=== PATIENT | female | born 1960 ===

== ENCOUNTER 2017-01-27 12:42 | Inpatient (IN) | payer MEDICAID, OTHER ==
[2017-01-27 12:52] VITALS: BMI 30.2
--- NOTE | 2017-01-27 13:30 | CT ---
PROCEDURE: CT HEAD WITHOUT CONTRAST. HISTORY: STROKE ALERT COMPARISON: None available. TECHNIQUE: Axial computed tomography images were obtained through the head/brain without intravenous contrast. Radiation dose: Total exam DLP = 820.35 mGy-cm. This CT exam was performed using one or more of the following dose reduction techniques: Automated exposure control, adjustment of the mA and/or kV according to patient size, and/or use of iterative reconstruction technique. FINDINGS: HEMORRHAGE: No acute parenchymal, subarachnoid nor extra-axial hemorrhage. . BRAIN: There is a somewhat curvilinear and irregular radiopaque density in the right parietal periventricular white matter associated with surrounding nonspecific gliosis. These findings most likely represent sequela of prior endovascular treatment for AVM however clinical correlation with history recommended. Clinical correlation with history is recommended. Note that the possibility of an underlying small acute infarct cannot be excluded based on this exam. Minor vascular calcifications. VENTRICLES: There is slight ex vacuo dilatation of the posterior aspect right lateral ventricle adjacent and abutting the aforementioned presumptive embolization coils and gliotic change. CALVARIUM: Calvarium is intact. PARANASAL SINUSES: Unremarkable as visualized. No significant inflammatory changes. MASTOID AIR CELLS: Unremarkable as visualized. No inflammatory changes. OTHER FINDINGS: None. IMPRESSION: No acute intracranial hemorrhage. Presumed embolization coils right parietal region with surrounding presumed gliosis. These findings most likely represent sequela of prior endovascular treatment for AVM however clinical correlation with history recommended. Minimal chronic periventricular white matter ischemic changes. Note possibility of a small acute infarct cannot be excluded. Clinical correlation recommended. These findings discussed with Dr. Rand at approximately 1:25 p.m. with written down and read back verification.
--- NOTE | 2017-01-27 13:54 | RAD ---
HISTORY: ADM COMPARISON: None available. TECHNIQUE: Chest, one view. FINDINGS: LUNGS: No focal consolidation. Please note that chest x-ray has limited sensitivity for the detection of pulmonary masses. PLEURA: No significant pleural effusion identified. No definite pneumothorax . CARDIOVASCULAR: Heart size appears within normal limits. OSSEOUS STRUCTURES: Degenerative changes of the spine. Acromioclavicular arthropathy. VISUALIZED UPPER ABDOMEN: Unremarkable. OTHER FINDINGS: None. IMPRESSION: No focal consolidation, significant pleural effusion, or definite pneumothorax identified.
[2017-01-27 14:13] LABS: BASO % 0.4 % (0.0-2.0); EOS # 0.1 K/uL (0.0-0.7); EOS % 1.6 % (0.0-4.0); HEMATOCRIT 35.7 % (34.0-47.0); LYMPH # 1.9 K/uL (1.0-4.3); LYMPH % 34.8 % (20.0-40.0); MEAN CELL VOLUME 86.7 fL (81.0-99.0); MEAN CORPUSCULAR HEMOGLOBIN 28.9 pg (27.0-31.0); MEAN CORPUSCULAR HGB CONC 33.3 g/dL (33.0-37.0); MONO # 0.3 K/uL (0.0-0.8); MONO % 6.2 % (0.0-10.0); RED CELL DISTRIBUTION WIDTH 13.7 % (11.5-14.5); WHITE BLOOD COUNT 5.6 K/uL (4.8-10.8)
[2017-01-27 14:21] LABS: INR 1.1; RBC URINE < 1 /hpf (0-3); URINE BILIRUBIN NEGATIVE (NEGATIVE); URINE BLOOD NEGATIVE (NEGATIVE); URINE COLOR Yellow (YELLOW); URINE GLUCOSE (UA) NORMAL (Normal); URINE KETONE NEGATIVE (NEGATIVE); URINE LEUKOCYTE ESTERASE NEG Leu/uL (Negative); URINE PROTEIN NEGATIVE (NEGATIVE); URINE UROBILINOGEN NORMAL mg/dL (0.2-1.0); WBC URINE 2 /hpf (0-5)
[2017-01-27 14:24] LABS: CHLORIDE 102 mmol/L (98-107); SODIUM 140 mmol/L (132-148)
[2017-01-27 14:25] LABS: POTASSIUM 3.7 mmol/L (3.6-5.2)
[2017-01-27 14:26] LABS: CHOLESTEROL 170 mg/dL (0-199)
[2017-01-27 14:27] LABS: ALB/GLOB RATIO 1.4 (1.0-2.1); ALKALINE PHOSPHATASE 78 U/L (38-126); AST/SGOT 26 U/L (14-36); BILIRUBIN,TOTAL 0.5 mg/dL (0.2-1.3); BLOOD UREA NITROGEN 16 mg/dL (7-17); CARBON DIOXIDE 28 mmol/L (22-30); GFR AFRICAN-AMERICAN > 60; GLUCOSE,RANDOM 115 mg/dL (65-105); TOTAL PROTEIN 6.8 g/dL (6.3-8.3)
[2017-01-27 14:28] LABS: ALT/SGPT 20 U/L (9-52); CALCIUM 8.8 mg/dl (8.6-10.4)
--- NOTE | 2017-01-27 14:44 | C.PDOC ---
History Of Present Illness 56 y/o female presents to the emergency department with complains of right face and left body paresthesia x1 day. 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 Denies chest pain, SOB, headache , nausea, vomiting or any other complaints. Time Seen by Provider: 01/27/17 13:15 Chief Complaint (Nursing): Weakness/Neurological Deficit History Per: Patient History/Exam Limitations: no limitations Onset/Duration Of Symptoms: Hrs Current Symptoms Are (Timing): Still Present Fall Associated With With Symptoms: No Severity: Mild Recent travel outside of the [place]: No - Symptoms Of CVA Recent Head Trauma: No Past Medical History Reviewed: Historical Data, Nursing Documentation, Vital Signs Vital Signs: Last Vital Signs Temp 98.4 F 01/27/17 12:52 Pulse 72 01/27/17 12:52 Resp 18 01/27/17 12:52 BP 147/81 01/27/17 12:52 Pulse Ox 97 01/27/17 14:54 Family History: States: Unknown Family Hx - Social History Hx Alcohol Use: No Hx Substance Use: No Review Of Systems Except As Marked, All Systems Reviewed And Found Negative. Constitutional: Negative for: Fever Cardiovascular: Negative for: Chest Pain Respiratory: Negative for: Shortness of Breath Gastrointestinal: Negative for: Vomiting Neurological: Positive for: Other (right face, left body paresthesia). Negative for: Headache Physical Exam - Physical Exam Appears: Non-toxic, No Acute Distress Skin: Warm, Dry, No Rash Head: Atraumatic, Normacephalic Eye(s): bilateral: Normal Inspection, PERRL, EOMI Neck: Normal, Normal ROM, Supple Chest: Symmetrical Cardiovascular: Rhythm Regular, No Murmur Respiratory: Normal Breath Sounds, No Rales, No Rhonchi, No Wheezing Gastrointestinal/Abdominal: Normal Exam, Soft, No Tenderness Extremity: Normal ROM Extremity: Bilateral: Atraumatic Pulses: Left Dorsalis Pedis: Normal, Right Dorsalis Pedis: Normal Neurological/Psych: Oriented x3, Normal Speech, Normal Cognition, Normal Cranial Nerves, Normal Motor, Normal Sensation ED Course And Treatment - Laboratory Results Result Diagrams: 01/27/17 14:00 01/27/17 14:00 Lab Interpretation: Normal ECG: Interpreted By Me ECG Rhythm: Sinus Rhythm ECG Interpretation: Normal Rate From EC O2 Sat by Pulse Oximetry: 97 (room air) Pulse Ox Interpretation: Normal - Radiology CXR: Interpreted by Me CXR Interpretation: Yes: No Acute Disease - CT Scan/US CT head Other Rad Studies (CT/US): Read By Radiologist, Radiology Report Reviewed CT/US Interpretation: IMPRESSION: No acute intracranial hemorrhage. Presumed embolization coils right parietal region with surrounding presumed gliosis. These findings most likely represent sequela of prior endovascular treatment for AVM however clinical correlation with history recommended. Minimal chronic periventricular white matter ischemic changes. Note possibility of a small acute infarct cannot be excluded. Clinical correlation recommended. These findings discussed with Dr. Rand at approximately 1:25 p.m. with written down and read back verification. Progress Note: Spoke to Dr Bonilla at 1330 Reevaluation Time: 14:50 Reassessment Condition: Unchanged - Physician Consult Information Outcome Of Conversation: 1330: d/w Dr. Bonilla- ok to Tele Obs. NIHSS Stroke Scale - Date/Time Evaluation Performed Date Performed: 01/27/17 Time Performed: 13:15 When Was NIHSS Performed: Baseline - How Severe is the Stoke Level of Consciousness: 0=Alert LOC to Questions: 0=Both comments correct LOC to commands: 0=Obeys both correctly Best Gaze: 0=Normal Visual: 0=No visual loss Facial: 0=Normal Motor Arm - Left: 0=No drift Motor Arm - Right: 0=No drift Motor Leg - Left: 0=No drift Motor Leg - Right: 0=No drift Limb Ataxia: 0=Absent Sensory: 0=Normal Best Language: 0=No aphasia Dysarthia: 0=Normal articulation Extinction & Inattention (Neglect): 0=Normal, no object Score: 0 Severity Of Stroke: 0= No Stroke rTPA Inclusion/Exclusion - Refusal of Treatment Patient Refused Treatment: No - Inclusion Criteria for Altepase Patient is 18 years or Older: Yes The Clinical Diagnosis of Ischemic Stroke That is Causing a Potentially Disabling Neurological Deficit: No Time of Onset is Well Established to be Less Than 270 Minute Before Treatment Would Begin: No Risk/Benefit Discussed With Patient/Family Member Present: No - Exclusion Criteria for Altepase Uncontrolled Hypertension at Time of Treatment (Systolic BP above 185 or Diastolic BP above 110 mmHg): No Known Bleeding Diathesis Including but Not Limited to: Platelets Below 100,000/ mm,PTT Above 40 sec After Heparin Use, Current Use of Oral Anitcoagulant With INR Greater Than 1.7 or PT Greater Than 15 secs: No Evidence of Major Acute Infarct With Signs Greater Than 1/3 MCA Territory: No Suspicion of Subarachnoid Hemorrhage on Pretreatment Evaluation Even if CT Head Negative For Hemorrhage: No - Warning to TPA With Conditions Condition: Stroke Serevity Too Mild Disposition Doctor Will See Patient In The: Hospital Counseled Patient/Family Regarding: Studies Performed, Diagnosis - Disposition Disposition: HOSPITALIZED Disposition Time: 14:50 Condition: GOOD - Clinical Impression Clinical Impression: Facial paresthesia, Paresthesia of left upper and lower extremity - Scribe Statement The provider has reviewed the documentation as recorded by the Esperanza Mccoy Provider Attestation: All medical record entries made by the Esperanza were at my direction and personally dictated by me. I have reviewed the chart and agree that the record accurately reflects my personal performance of the history, physical exam, medical decision making, and the department course for this patient. I have also personally directed, reviewed, and agree with the discharge instructions and disposition.
[2017-01-27] MEDS ORDERED: Aspirin 325 mg EC Tablets PO STA (14:54)
[2017-01-27] MEDS ORDERED: Aspirin 325 mg EC Tablets PO ONE (15:35)
[2017-01-27 18:30] VITALS: TEMP 97.8
[2017-01-28 00:55] VITALS: RESP 20
--- NOTE | 2017-01-28 01:41 | CP.PCM.HP ---
History of Present Illness - History of Present Illness History of Present Illness: 56 y/o female presents to the emergency department with complains of right face and left body paresthesia x1 day. 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 Denies chest pain, SOB, headache , nausea, vomiting or any other complaints. Present on Admission - Present on Admission Any Indicators Present on Admission: Yes Review of Systems - Review of Systems Systems not reviewed;Unavailable: Unstable Vital Signs, Altered Mental Status - Constitutional Constitutional: Fatigue, Lethargy. absent: As Per HPI, Anorexia, Chills, Daytime Sleepiness, Excessive Sweating, Fever, Frequent Falls, Headache, Increased Appetite, Malaise, Night Sweats, Snoring, Sleep Apnea, Weight Gain, Weight Loss, Weakness, Other - EENT Eyes: absent: As Per HPI, Blind Spots, Blurred Vision, Change in Vision, Decreased Night Vision, Diplopia, Discharge, Dry Eye, Exophthalmos, Floaters, Irritation, Itchy Eyes, Loss of Peripheral Vision, Pain, Photophobia, Requires Corrective Lenses, Sees Flashes, Spots in Vision, Tunnel Vision, Other Visual Disturbances, Loss of Vision, Other Nose/Mouth/Throat: absent: As Per HPI, Epistaxis, Nasal Congestion, Nasal Discharge, Nasal Obstruction, Nasal Trauma, Nose Pain, Post Nasal Drip, Sinus Pain, Sinus Pressure, Bleeding Gums, Change in Voice, Dental Pain, Dry Mouth, Dysphagia, Halitosis, Hoarsness, Lip Swelling, Mouth Lesions, Mouth Pain, Odynophagia, Sore Throat, Throat Swelling, Tongue Swelling, Facial Pain, Neck Pain, Neck Mass, Other - Cardiovascular Cardiovascular: absent: As Per HPI, Acrocyanosis, Chest Pain, Chest Pain at Rest , Chest Pain with Activity, Claudication, Diaphoresis, Dyspnea, Dyspnea on Exertion, Edema, Irregular Heart Rhythm, Pain Radiating to Arm/Neck/Jaw, Leg Edema, Leg Ulcers, Lightheadedness, Orthopnea, Palpitations, Paroxysmal Nocturnal Dyspnea, Pedal Edema, Radiating Pain, Rapid Heart Rate, Slow Heart Rate, Syncope, Other - Respiratory Respiratory: absent: As Per HPI, Cough, Dyspnea, Hemoptysis, Dyspnea on Exertion , Wheezing, Snoring, Stridor, Pain on Inspiration, Chest Congestion, Excessive Mucous Production, Change in Mucous Color, Pain with Coughing, Other - Gastrointestinal Gastrointestinal: absent: As Per HPI, Abdominal Pain, Belching, Bloating, Change in Bowel Habits, Change in Stool Character, Coffee Ground Emesis, Constipation, Cramping, Diarrhea, Dyspepsia, Dysphagia, Early Satiety, Excessive Flatus, Fecal Incontinence, Heartburn, Hematemesis, Hematochezia, Loose Stools, Melena, Nausea, Odynophagia, Temesmus, Vomiting, Other - Neurological Neurological: Confusion, Numbness, Weakness Past Patient History - Infectious Disease Hx of Infectious Diseases: None - Past Medical History & Family History Past Medical History?: Yes - Past Social History Smoking Status: Never Smoked - NEUROLOGICAL HX Cerebrovascular Accident: Yes (ARTERIORVENOUS MALFORMATION) Other/Comment: headaches - MUSCULOSKELETAL/RHEUMATOLOGICAL Hx Falls: Yes - PSYCHIATRIC Hx Substance Use: No - SURGICAL HISTORY Other/Comment: CEREBRAL ARTERIOVENOUS MALFORMATION REPAIR - ANESTHESIA Hx Anesthesia: Yes Hx Anesthesia Reactions: No Meds Allergies/Adverse Reactions: Allergies Allergy/AdvReac Type Severity Reaction Status Date / Time No Known Allergies Allergy Verified 01/27/17 12:50 Physical Exam - Constitutional Appears: No Acute Distress - Head Exam Head Exam: ATRAUMATIC, NORMAL INSPECTION, NORMOCEPHALIC - Eye Exam Eye Exam: EOMI, Normal appearance, PERRL Pupil Exam: NORMAL ACCOMODATION, PERRL - Respiratory Exam Respiratory Exam: Clear to Auscultation Bilateral, NORMAL BREATHING PATTERN - Cardiovascular Exam Cardiovascular Exam: REGULAR RHYTHM - GI/Abdominal Exam GI & Abdominal Exam: Normal Bowel Sounds, Soft. 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
[2017-01-28 05:24] VITALS: BP 106/68
[2017-01-28] MEDS ORDERED: Pantoprazole 40 mg EC Tab PO SCH (10:00)
--- NOTE | 2017-01-28 15:50 | CP.PCM.PN ---
Subjective - Date & Time of Evaluation Date of Evaluation: 01/28/17 Time of Evaluation: 15:51 - Subjective Subjective: Alert, orientedx3, no weakness or numbness noted. Objective - Vital Signs/Intake and Output Vital Signs (last 24 hours): Temp Pulse Resp BP Pulse Ox 97.8 F 76 20 106/68 97 01/27/17 23:35 01/28/17 13:57 01/27/17 23:35 01/28/17 04:00 01/27/17 23:35 Intake and Output: 01/28/17 01/28/17 06:59 18:59 Intake Total 250 Balance 250 - Labs Labs: PT 12.1 SECONDS (9.7-12.2) 01/27/17 14:00 INR 1.1 01/27/17 14:00 APTT 34 SECONDS (21-34) 01/27/17 14:00 Assessment and Plan - Assessment and Plan (Free Text) Assessment: Patient is seen and examined. Denies any numbness, able to walk with no difficulty. CT of the head negative, unable to do MRI. d/w DR Bonilla, plan to discharge home and follow up with neurologists as scheduled.
--- NOTE | 2017-01-28 17:55 | CON ---
DATE: 01/28/2017 CHIEF COMPLAINT: Transient right facial and left body paresthesias. HISTORY OF PRESENT ILLNESS: This is a 56-year-old woman with a history of an AVM status post i n the left temporal occiput in 05/2015 at [facility], history of hypertension who presented wi th transient paresthesias of the right face and left body for the past day. It was evident that she was slightly hypotensive as well as dehydrated. Currently, she is moving around without any difficul ties. Currently, her neuro exam is nonfocal. She is going to be going home today. She was slightly dehydrated on her labs. PAST MEDICAL HISTORY: History of AVM in the left temporal occiput 05/2015 at [facility]. REVIEW OF SYSTEMS: A 14-point review of systems was negative except for the HPI. MEDICATIONS: Reviewed via nurses' reconciliation sheet. SOCIAL HISTORY: No illicit drug use, smoking, or ETOH abuse. FAMILY HISTORY: Noncontributory. PHYSICAL EXAMINATION: VITAL SIGNS: Temperature 97.8, pulse rate is 63, blood pressure of 106/ , respiratory rate of 18 , oxygen 97% on room air. GENERAL: The patient is sitting up in bed in no acute distress. HEENT: Atraumatic, normocephalic. PERRLA. Extraocular muscles intact. NECK: Supple, no JVD, no adenopathy noted. LUNGS: Clear to auscultation. No adventitious sounds. HEART: S1, S2, normal rate and rhythm. No murmurs, rubs, or gallops. ABDOMEN: Soft, nontender, nondistended. Bowel sounds are present. EXTREMITIES: No clubbing, no cyanosis. Peripheral pulses 2+ felt bilaterally. NEUROLOGIC: The patient is alert and oriented to person, place, month and year. Speech is fluent wi thout any errors. Cranial nerves II-XII are intact. MOTOR: Moves all extremities equally. Toes are downgoing bilaterally. SENSORY: light touch, pinprick, proprioception, vibration. DTRs 2+ throughout. COORDINATION: Azwtza-ve-shvv intact. GAIT: Normal. LABORATORIES: Sodium is 140, potassium 3.7, chloride 102, carbon dioxide 28, BUN of 16, creatinine 0 .6, random glucose 115. ASSESSMENT AND PLAN: This is a 56-year-old woman with history of arteriovenous malformation in the l eft temporal occiput in 05/2015 at [facility], who came in with transient paresthesias of righ t face and left body, likely secondary to transient cerebral hypoperfusion and dehydration. Currentl y, his neuro exam is nonfocal. She is clinically stable for discharge. Can follow up with her prima care as an outpatient. Thank you for this consult. José Luis Celis MD cc: [id number] TT: 01/28/2017 17:55:19 Confirmation # [id number] Dictation # [id number] dn
--- NOTE | 2017-01-28 18:07 | CARD ---
APPROVED REPORT EXAM: Two-dimensional and M-mode echocardiogram with Doppler and color Doppler. Other Information Quality : GoodRhythm : NSR INDICATION STROKE M-Mode DIMENSIONS RVDd2.57 (2.1-3.2cm)Left Atrium (MM)3.96 (2.5-4.0cm) IVSd0.91 (0.7-1.1cm)Aortic Root2.88 (2.2-3.7cm) LVDd4.72 (4.0-5.6cm)Aortic Cusp Exc.1.42 (1.5-2.0cm) PWd0.81 (0.7-1.1cm)FS (%) 39 % LVDs2.90 (2.0-3.8cm)LVEF (%)69 (>50%) Mitral Valve MV E Szzohfeg45.3cm/sMV A Rdesgzim73.9cm/sE/A ratio1.0 TDI E/Lateral E'0.0E/Medial E'0.0 Tricuspid Valve TR Peak [id number]/sTR Peak Gr.[id number] LEFT VENTRICLE The left ventricle is normal size. There is normal left ventricular wall thickness. Left ventricle systolic function is normal. The Ejection Fraction is 65-70%. There is normal LV segmental wall motion. Transmitral Doppler flow pattern is Grade I-abnormal relaxation pattern. There is no ventricular septal defect visualized. RIGHT VENTRICLE The right ventricle is normal size. The right ventricular systolic function is normal. ATRIA The left atrium is borderline dilated. The right atrium size is normal. AORTIC VALVE The aortic valve is mildly sclerotic. The aortic valve is tri-cuspid. No aortic regurgitation is present. There is no aortic valvular stenosis. MITRAL VALVE The mitral valve is normal in structure. There is no evidence of mitral valve prolapse. There is no mitral valve stenosis. TRICUSPID VALVE The tricuspid valve is normal in structure. There is trace tricuspid regurgitation. There is no pulmonary hypertension. PULMONIC VALVE The pulmonic valve is not well visualized. There is no pulmonic valvular regurgitation. GREAT VESSELS The IVC is normal in size and collapses >50% with inspiration. PERICARDIAL EFFUSION There is no pericardial effusion. <Conclusion> Left ventricle systolic function is normal. The Ejection Fraction is 65-70%. Transmitral Doppler flow pattern is Grade I-abnormal relaxation pattern.
--- NOTE | 2017-01-29 04:24 | CP.PCM.DIS ---
Provider - Provider Date of Admission: 01/27/17 14:45 Attending physician: Richie Bonilla MD Time Spent in preparation of Discharge (in minutes): 54 Hospital Course - Lab Results Lab Results: Most Recent Lab Values WBC 5.6 K/uL (4.8-10.8) 01/27/17 14:00 RBC 4.12 Mil/uL (3.80-5.20) 01/27/17 14:00 Hgb 11.9 g/dL (11.0-16.0) 01/27/17 14:00 Hct 35.7 % (34.0-47.0) 01/27/17 14:00 MCV 86.7 fL (81.0-99.0) 01/27/17 14:00 MCH 28.9 pg (27.0-31.0) 01/27/17 14:00 MCHC 33.3 g/dL (33.0-37.0) 01/27/17 14:00 RDW 13.7 % (11.5-14.5) 01/27/17 14:00 Plt Count 204 K/uL (130-400) 01/27/17 14:00 MPV 10.0 fL (7.2-11.7) 01/27/17 14:00 Neut % (Auto) 57.0 % (50.0-75.0) 01/27/17 14:00 Lymph % (Auto) 34.8 % (20.0-40.0) 01/27/17 14:00 [place] % (Auto) 6.2 % (0.0-10.0) 01/27/17 14:00 Eos % (Auto) 1.6 % (0.0-4.0) 01/27/17 14:00 Baso % (Auto) 0.4 % (0.0-2.0) 01/27/17 14:00 Neut # 3.2 K/uL (1.8-7.0) 01/27/17 14:00 Lymph # 1.9 K/uL (1.0-4.3) 01/27/17 14:00 [place] # 0.3 K/uL (0.0-0.8) 01/27/17 14:00 Eos # 0.1 K/uL (0.0-0.7) 01/27/17 14:00 Baso # 0.0 K/uL (0.0-0.2) 01/27/17 14:00 PT 12.1 SECONDS (9.7-12.2) 01/27/17 14:00 INR 1.1 01/27/17 14:00 APTT 34 SECONDS (21-34) 01/27/17 14:00 Sodium 140 mmol/L (132-148) 01/27/17 14:00 Potassium 3.7 mmol/L (3.6-5.2) 01/27/17 14:00 Chloride 102 mmol/L (98-107) 01/27/17 14:00 Carbon Dioxide 28 mmol/L (22-30) 01/27/17 14:00 Anion Gap 14 (10-20) 01/27/17 14:00 BUN 16 mg/dL (7-17) 01/27/17 14:00 Creatinine 0.6 MG/DL (0.7-1.2) L 01/27/17 14:00 Est GFR ( Amer) > 60 01/27/17 14:00 Est GFR (Non-Af Amer) > 60 01/27/17 14:00 Random Glucose 115 mg/dL (65-105) H 01/27/17 14:00 Hemoglobin A1c 5.6 % (4.2-6.5) 01/27/17 14:00 Calcium 8.8 mg/dl (8.6-10.4) 01/27/17 14:00 Total Bilirubin 0.5 mg/dL (0.2-1.3) 01/27/17 14:00 AST 26 U/L (14-36) 01/27/17 14:00 ALT 20 U/L (9-52) 01/27/17 14:00 Alkaline Phosphatase 78 U/L (38-126) 01/27/17 14:00 Troponin I < 0.0120 ng/mL (0.00-0.120) 01/27/17 14:00 Total Protein 6.8 g/dL (6.3-8.3) 01/27/17 14:00 Albumin 3.9 g/dL (3.5-5.0) 01/27/17 14:00 Globulin 2.9 gm/dL (2.2-3.9) 01/27/17 14:00 Albumin/Globulin Ratio 1.4 (1.0-2.1) 01/27/17 14:00 Triglycerides 136 mg/dL (0-149) 01/27/17 14:00 Cholesterol 170 mg/dL (0-199) 01/27/17 14:00 LDL Cholesterol Direct 94 mg/dL (0-129) 01/27/17 14:00 HDL Cholesterol 47 mg/dL (30-70) 01/27/17 14:00 Urine Color Yellow (YELLOW) 01/27/17 14:00 Urine Clarity Hazy (Clear) 01/27/17 14:00 Urine pH 5.0 (5.0-8.0) 01/27/17 14:00 Ur Specific [place] 1.019 (1.003-1.030) 01/27/17 14:00 Urine Protein Negative mg/dL (NEGATIVE) 01/27/17 14:00 Urine Glucose (UA) Normal mg/dL (Normal) 01/27/17 14:00 Urine Ketones Negative mg/dL (NEGATIVE) 01/27/17 14:00 Urine Blood Negative (NEGATIVE) 01/27/17 14:00 Urine Nitrate Negative (NEGATIVE) 01/27/17 14:00 Urine Bilirubin Negative (NEGATIVE) 01/27/17 14:00 Urine Urobilinogen Normal mg/dL (0.2-1.0) 01/27/17 14:00 Ur Leukocyte Esterase Neg Ni/uL (Negative) 01/27/17 14:00 Urine WBC (Auto) 2 /hpf (0-5) 01/27/17 14:00 Urine RBC (Auto) < 1 /hpf (0-3) 01/27/17 14:00 Ur Squamous Epith Cells 21 /hpf (0-5) H 01/27/17 14:00 - Hospital Course Hospital Course: Patient is seen and examined. Denies any numbness, able to walk with no difficulty. CT of the head negative, unable to do MRI multipl metal clips in brain. , plan to discharge home and follow up with neurologists as scheduled. Discharge Exam - Head Exam Head Exam: ATRAUMATIC, NORMAL INSPECTION, NORMOCEPHALIC - Eye Exam Eye Exam: EOMI, Normal appearance, PERRL Pupil Exam: NORMAL ACCOMODATION, PERRL - Respiratory Exam Respiratory Exam: Clear to PA & Lateral, NORMAL BREATHING PATTERN - Cardiovascular Exam Cardiovascular Exam: REGULAR RHYTHM, +S1, +S2 - GI/Abdominal Exam GI & Abdominal Exam: Normal Bowel Sounds Discharge Plan - Follow Up Plan Condition: GOOD Disposition: HOME/ ROUTINE
[2017-01-29 08:23] VITALS: PULSE 55; O2SAT 95
--- NOTE | 2017-01-30 09:09 | VASCLAB ---
PROCEDURE: HISTORY: parasthesia COMPARISON: None available. TECHNIQUE: Grayscale and duplex Doppler evaluation of the cervical carotid and vertebral arteries were performed. The common carotid, carotid bifurcations and cervical Internal Carotid Artery (ICA) and proximal External Carotid Artery (ECA) were evaluated. The vertebral arteries were evaluated for gross patency and flow direction. Report prepared by HUSSAIN Harris, RVT FINDINGS: RIGHT CAROTID ARTERIES: 1. Common Carotid Artery: No significant focal plaque formation of the right common carotid artery. Maximum Peak Systolic velocity: 71 cm/sec: End-diastolic velocity 17 cm/sec. 2. Carotid Bifurcation: plaque formation. Maximum Peak Systolic velocity: cm/sec: End-diastolic velocity cm/sec. 3. Internal Carotid Artery: Plaque description: Homogeneous 3.1. Proximal Segment: Peak systolic velocity 50 cm/sec: End-diastolic velocity 10 cm/sec - % stenosis 3.2. Middle Segment: Peak systolic velocity 80 cm/sec: End-diastolic velocity 23 cm/sec - % stenosis 3.3. Distal Segment: Peak systolic velocity 66 cm/sec: End-diastolic velocity 24 cm/sec - % stenosis 4. External Carotid Artery: No significant focal plaque formation. Peak systolic velocity 83 cm/sec 5. ICA/CCA Ratio: 1.1 LEFT CAROTID ARTERIES: 1. Common Carotid Artery: No significant focal plaque formation of the left common carotid artery. Maximum Peak Systolic velocity: 80 cm/sec: End-diastolic velocity 26 cm/sec. 2. Carotid Bifurcation: plaque formation. Maximum Peak Systolic velocity: cm/sec: End-diastolic velocity cm/sec. 3. Internal Carotid Artery: Plaque description: 3.1. Proximal Segment: Peak systolic velocity 48 cm/sec: End-diastolic velocity 26 cm/sec - % stenosis 3.2. Middle Segment: Peak systolic velocity 82 cm/sec: End-diastolic velocity 26 cm/sec - % stenosis 3.3. Distal Segment: Peak systolic velocity 75 cm/sec: End-diastolic velocity 20 cm/sec - % stenosis 4. External Carotid Artery: No significant focal plaque formation. Peak systolic velocity 96 cm/sec 5. ICA/CCA Ratio: 1.2 VERTEBRAL ARTERIES: 1. Right Vertebral Artery: The right vertebral artery flow direction is antegrade. 2. Left Vertebral Artery: The left vertebral artery flow direction is antegrade. OTHER FINDINGS: 1. Right Brachial Blood pressure: 110/60 mmHg. 2. Left Brachial Blood pressure: mmHg. IMPRESSION: RIGHT: Duplex scan does not suggest hemodynamically significant stenosis of the right extracranial carotid arteries. LEFT: Duplex scan does not suggest hemodynamically significant stenosis of the left extracranial carotid arteries.
--- NOTE | 2017-01-30 13:15 | CARD ---
APPROVED REPORT EKG Measurement Heart [id number] <Conclusion> Sinus bradycardia Otherwise normal ECG
== END 2017-01-28 15:35 | disposition home or self-care (01) | DRG 34 ==
LOC: C.ER 12:42 → C.9E 14:45 → C.6T 15:43
PROVIDERS: ADMIT Internal Medicine; ATTEND Internal Medicine
DX: R20.9 Unspecified disturbances of skin sensation (principal); E86.0 Dehydration; I10 Essential (primary) hypertension; Z86.73 Personal history of transient ischemic attack (TIA), and cerebral infarction without residual deficits